=== PATIENT | female | born 1990 | race Caucasian/White ===

== ENCOUNTER 2018-12-25 01:42 | Emergency (ER) | payer OTHER ==
[~2018-12-25] VITALS: Ht 160 cm; Wt 65.9 kg
[2018-12-25 01:54] VITALS: Ht 160 cm; Wt 65.9 kg
[2018-12-25] MEDS ORDERED: MEDROL DOSE PACK4 MG PO (02:34)
[2018-12-25] MEDS ORDERED: KEFLEX500 MG PO (02:34)
[2018-12-25] MEDS ORDERED: BENADRYL50 MG PO (02:34)
[2018-12-25 03:19] VITALS: BP 123/80
== END 2018-12-25 03:20 | disposition home or self-care (01) ==
LOC: D.ER 01:42 → EDBD 01:42 → D.ER 03:20
DX: K12.0 Recurrent oral aphthae (principal)